=== PATIENT | male | born 1955 | race Caucasian/White ===

== ENCOUNTER 2019-06-28 11:00 | Emergency (ER) | payer MEDICAID ==
[~2019-06-28] VITALS: Ht 160 cm; Wt 72.0 kg
[2019-06-28] MEDS ORDERED: OXYCODONE HCL/ACETAMINOPHEN 5/325MG TABLET PO ONE (12:15)
[2019-06-28 13:25] VITALS: BP 120/79
== END 2019-06-28 13:26 | disposition home or self-care (01) ==
LOC: ER 11:00
DX: S22.31XA Fracture of one rib, right side, initial encounter for closed fracture (principal); M79.18 Myalgia, other site; W01.0XXA Fall on same level from slipping, tripping and stumbling without subsequent striking against object, initial encounter; Y93.89 Activity, other specified; Y92.89 Other specified places as the place of occurrence of the external cause
CPT/HCPCS: 71101; 99283